=== PATIENT | male | born 1965 | race Caucasian/White ===

== ENCOUNTER 2017-01-21 15:37 | Emergency (ER) | payer OTHER ==
[~2017-01-21] VITALS: Ht 182.9 cm; Wt 95.2 kg
[2017-01-21] MEDS ORDERED: PRINIVIL20 MG PO (15:56)
[2017-01-21] MEDS ORDERED: NORCO 5-325 TA1 EACH PO (17:35)
== END 2017-01-21 18:53 | disposition home or self-care (01) ==
LOC: ED 15:37
DX: S42.002A Fracture of unspecified part of left clavicle, initial encounter for closed fracture (principal); I10 Essential (primary) hypertension; Z90.79 Acquired absence of other genital organ(s); Z79.899 Other long term (current) drug therapy; V00-Y99 External causes of morbidity
CPT/HCPCS: 73030; 73130; 96360; 96372; 99283; J1170; J7030